=== PATIENT | male | born 1970 | race American Indian/Alaskan Native ===

== ENCOUNTER 2020-04-25 11:42 | Emergency (ER) | payer BC ==
--- NOTE | 2020-04-25 12:27 | Emergency Department Report ---
ED General Adult HPI - General Chief complaint: High BP Stated complaint: HTN Time Seen by Provider: 04/25/20 12:22 Source: patient Mode of arrival: Ambulatory Limitations: No Limitations - History of Present Illness Initial comments: pt is a 49 yo male who presents to the ED with c/o wanting changes to his blood pressure medication. he states over the last few weeks he has been adjusting his medication himself. he states he was having side effects from some of the medications including sinus congestion, sinus pressure, myalgias, and occasional lightheadedness. he states he went to his PCP and was sent to a teacher [facility]. he states the [facility] advised him to stay on his medication. he states he called his PCP as he did not want to stay on all the medications and the PCP advised for him to come in and they would slowly adjust his medications. he states he has not yet followed up with his PCP. he states that when he goes to his PCP office he sees a different person every time and states that he wants a new PCP/[facility] where he sees the same person during every visit. he states where he currently goes it is like an urgent care/PCP hybrid and every visit is with a different person. he states he is supposed to be taking telemasartan, amlodipine, atenolol and triamterene-hctz. he states he sometimes he will cut a pill in half or will just stop taking a medication completely. he states that the last two days he has been only taking telemasartan and atenolol. he denies any symptoms at all currently and states he feels "fine" now. allergy: codeine, doxycycline, prednisone. - Related Data Allergies Allergy/AdvReac Type Severity Reaction Status Date / Time codeine Allergy Anaphylaxis Verified 04/25/20 11:43 doxycycline Allergy Anaphylaxis Verified 04/25/20 11:43 prednisone Allergy Unknown Verified 04/25/20 11:44 ED Review of Systems ROS: Stated complaint: HTN Other details as noted in HPI Comment: All other systems reviewed and negative ED Past Medical Hx - Past Medical History Hx Hypertension: Yes Hx Diabetes: Yes - Social History Smoking Status: Never Smoker Substance Use Type: None ED Physical Exam - General Limitations: No Limitations General appearance: alert, in no apparent distress - Head Head exam: Present: atraumatic, normocephalic - Eye Eye exam: Present: normal appearance - ENT ENT exam: Present: mucous membranes moist - Respiratory Respiratory exam: Present: normal lung sounds bilaterally. Absent: respiratory distress, wheezes, rales, rhonchi, stridor, chest wall tenderness, accessory muscle use, decreased breath sounds, prolonged expiratory - Cardiovascular Cardiovascular Exam: Present: regular rate, normal rhythm, normal heart sounds. Absent: systolic murmur, diastolic murmur, rubs, gallop - Extremities Exam Extremities exam: Absent: pedal edema, calf tenderness - Neurological Exam Neurological exam: Present: alert, oriented X3 - Psychiatric Psychiatric exam: Present: normal affect, normal mood - Skin Skin exam: Present: warm, dry, intact ED Course Vital Signs 04/25/20 04/25/20 11:45 13:17 Temperature 98.4 F Pulse Rate 64 59 L Respiratory 20 16 Rate Blood Pressure 151/95 Blood Pressure 132/98 [Right] O2 Sat by Pulse 100 97 Oximetry ED Medical Decision Making - Medical Decision Making pt is a 49 yo male who presents to the ED with c/o wanting changes to his blood pressure medication. he states over the last few weeks he has been adjusting his medication himself. he states he was having side effects from some of the medications including sinus congestion, sinus pressure, myalgias, and occasional lightheadedness. he states he went to his PCP and was sent to a [facility]. he states the [facility] advised him to stay on his medication. he states he called his PCP as he did not want to stay on all the medications and the PCP advised for him to come in and they would slowly adjust his medications. he states he has not yet followed up with his PCP. he states that when he goes to his PCP office he sees a different person every time and states that he wants a new PCP/[facility] where he sees the same person during every visit. he states where he currently goes it is like an urgent care/PCP hybrid and every visit is with a different person. he states he is supposed to be taking telemasartan, amlodipine, atenolol and triamterene-hctz. he states he sometimes he will cut a pill in half or will just stop taking a medication completely. he states that the last two days he has been only taking telemasartan and atenolol. he denies any symptoms at all currently and states he feels "fine" now. allergy: codeine, doxycycline, prednisone. Patient's vitals are stable. Blood pressure is 151/95, on repeat blood pressure has improved 132/98. Patient is presenting for changes to his blood pressure medication. Discussed with patient the importance of his medication and chronic conditions being managed by one behavioral psychologist such as a primary care or internal medicine provider. Advised patient that we do not typically make adjustments to home medications as patient would not follow-up with the emergency department. He is stable at this time and has no complaints at this time and there is no abnormalities on physical examination as documented in chart. I would not make adjustments to patient's medication at this time. Given that he has only been taking atenolol and telmisartan, advised patient to continue taking that medication, keep a very strict blood pressure log, discussed lifestyle modifications, and discussed the importance of taking all this information to the primary care doctor and to monitor for any side effects. Patient given the appropriate resources. Advised patient please follow up with a primary care doctor regarding your chronic medical conditions. keep a blood pressure log and take this to a primary care doctor. eat a low sodium diet. incorporate 30-60 minutes of aerobic exercise. return to the emergency room for any new or worsening symptoms. Critical care attestation.: If time is entered above; I have spent that time in minutes in the direct care of this critically ill patient, excluding procedure time. ED Disposition Clinical Impression: HTN (hypertension) Qualifiers: Hypertension type: unspecified Qualified Code(s): I10 - Essential (primary) hypertension Disposition: DC-01 TO HOME OR SELFCARE Is pt being admited?: No Does the pt Need Aspirin: No Condition: Stable Instructions: Low-Sodium Eating Plan, Managing Your Hypertension, Hypertension, Adult, Hypertension (ED) Additional Instructions: please follow up with a primary care doctor regarding your chronic medical conditions. keep a blood pressure log and take this to a primary care doctor. eat a low sodium diet. incorporate 30-60 minutes of aerobic exercise. return to the emergency room for any new or worsening symptoms. Referrals: STEFANI MCELROY MD [Staff Physician] - 3-5 Days ALBERTO COLLINS MD [Staff Physician] - 3-5 Days ANNA BOOKER MD [Staff Physician] - 3-5 Days REBECA LEVY MD [Staff Physician] - 3-5 Days Time of Disposition: 12:28 Print Language: UKRAINIAN
[2020-04-25 13:17] VITALS: BP 132/98
== END 2020-04-25 13:18 | disposition home or self-care (01) ==
LOC: ED 11:42
DX: I10 Essential (primary) hypertension (principal); E11.9 Type 2 diabetes mellitus without complications; Z88.8 Allergy status to other drugs, medicaments and biological substances